=== PATIENT | female | born 1980 | race Caucasian/White ===

== ENCOUNTER 2022-03-26 08:18 | Outpatient (CLI) | payer BC, SELFPAY ==
--- NOTE | ~2022-03-26 | MR_ITS ---
EXAMINATION: MR cervical spine wo con DATE: 03/26/2022 08:59 INDICATION: Cervical radiculopathy, neck pain and occipital headaches for one year. TECHNIQUE: Magnetic resonance imaging (MRI) of the cervical spine was performed without intravenous c ontrast. Sequences included sagittal T2-weighted FSE, sagittal T2-weighted FS FSE, sagittal T1-weight ed FSE, axial MERGE, and axial T2-weighted FSE. COMPARISON: None FINDINGS: Craniocervical association and atlantoaxial joint are intact. Normal alignement. Vertebral body heights are maintained. Disc dehydration at C2-3 and C3-4. The cord signal is normal. Partially visualized right upper thoracic spine fusion hardware. The following disc levels are specifically dis cussed: C2-C3: The disc does not extend beyond the endplate margin. There is no uncovertebral joint osteoarth ritis. There is no facet joint osteoarthritis. There is no neural foraminal stenosis. There is no elizabeth tral canal stenosis. C3-C4: The disc does not extend beyond the endplate margin. There is moderate right uncovertebral nahum nt osteoarthritis. There is mild facet joint osteoarthritis. There is mild right neural foraminal usama nosis. There is no central canal stenosis. C4-C5: The disc does not extend beyond the endplate margin. There is mild right uncovertebral joint o steoarthritis. There is mild facet joint osteoarthritis. There is no neural foraminal stenosis. There is no central canal stenosis. C5-C6: The disc does not extend beyond the endplate margin. There is mild right uncovertebral joint o steoarthritis. There is mild facet joint osteoarthritis. There is no neural foraminal stenosis. There is no central canal stenosis. C6-C7: The disc does not extend beyond the endplate margin. There is no uncovertebral joint osteoarth ritis. There is mild facet joint osteoarthritis. There is no neural foraminal stenosis. There is no c entral canal stenosis. C7-T1: The disc does not extend beyond the endplate margin. There is no uncovertebral joint osteoarth ritis. There is mild facet joint osteoarthritis. There is no neural foraminal stenosis. There is no c entral canal stenosis. IMPRESSION: Moderate right uncovertebral joint hypertrophy at C3-4 contributes to mild right neural foraminal good rowing at that level. Additional mild right uncovertebral joint hypertrophy and mild bilateral facet arthropathy at multiple levels as described above. Reviewed, dictated and finalized at location K. IMPRESSION: Moderate right uncovertebral joint hypertrophy at C3-4 contributes to mild righ t neural foraminal narrowing at that level. Additional mild right uncovertebral joint hypertrophy and mild bilateral facet arthropathy at multiple levels as d escribed above.
== END 2022-03-26 08:19 ==
PROVIDERS: PCP Family Medicine; Visit Provider Physical Medicine & Rehabilitation
DX: M54.12 Radiculopathy, cervical region (principal)
CPT/HCPCS: 72141

== ENCOUNTER 2022-07-06 10:00 | Outpatient (CLI) | payer BC, SELFPAY ==
--- NOTE | 2022-07-06 11:00 | NEURO_ITS ---
IMPRESSION: # History of pain in the right upper extremity. This is a normal electrodiagnostic study, with normal EMG examination. Clinical correlation recommended. Nerve Conduction Studies Anti Sensory Summary Table Stim Site NR Peak (ms) P-T Amp (?V) Site1 Site2 Delta-P (ms) Dist (cm) Db (m/s) Right Median Anti Sensory (2-3nd Digit) Wrist 2.9 34.0 Wrist 2-3nd Digit 2.9 14.0 48 Wrist 2.8 61.6 Wrist 2-3nd Digit 2.9 14.0 48 Right Radial Anti Sensory (Base 1st Digit) Wrist 2.5 67.9 Wrist Base 1st Digit 2.5 0.0 Right Ulnar Anti Sensory (5th Digit) Wrist 2.6 72.4 Wrist 5th Digit 2.6 14.0 54 Motor Summary Table Stim Site NR Onset (ms) O-P Amp (mV) Site1 Site2 Delta-0 (ms) Dist (cm) Db (m/s) Right Median Motor (Abd Poll Brev) Wrist 2.7 4.1 Elbow Wrist 3.5 21.0 60 Elbow 6.2 2.2 Right Ulnar Motor (Abd Dig Minimi) Wrist 2.1 2.8 A Elbow Wrist 4.4 28.0 64 A Elbow 6.5 2.5 B Elbow Wrist 3.2 20.5 64 B Elbow 5.3 2.3 F Wave Studies NR F-Lat (ms) L-R F-Lat (ms) Right Median (Mrkrs) (Abd Poll Brev) 23.74 Right Ulnar (Mrkrs) (Abd Dig Min) 24.69 EMG Side Muscle Nerve Root Ins Act Fibs Amp Dur Recrt Comment Right 1stDorInt Ulnar C8-T1 Nml Nml Nml Nml Nml Right Ext Indicis Radial (Post Int) C7-8 Nml Nml Nml Nml Nml Right Ext Digitorum Radial (Post Int) C7-8 Nml Nml Nml Nml Nml Right BrachioRad Radial C5-6 Nml Nml Nml Nml Nml Right PronatorTeres Median C6-7 Nml Nml Nml Nml Nml Right Abd Poll Brev Median C8-T1 Nml Nml Nml Nml Nml MTDD
== END 2022-07-06 10:01 | disposition home or self-care (01) ==
PROVIDERS: PCP Family Medicine; Visit Provider Physical Medicine & Rehabilitation
DX: G62.9 Polyneuropathy, unspecified (principal)
CPT/HCPCS: 95886; 95909